=== PATIENT | male | born 1980 | race Caucasian/White ===

== ENCOUNTER 2019-04-19 16:53 | Emergency (ER) | payer SELFPAY ==
[~2019-04-19] VITALS: Ht 177.8 cm; Wt 118.2 kg
[2019-04-19 17:08] VITALS: Ht 177.8 cm; Wt 118.2 kg
[2019-04-19 18:02] LABS: APPEARANCE CLEAR (CLEAR); BILIRUBIN NEGATIVE (NEGATIVE); COLOR YELLOW (YELLOW); GLUCOSE NEGATIVE (NEGATIVE); KETONE NEGATIVE (NEGATIVE); NITRITE NEGATIVE (NEGATIVE); PROTEIN NEGATIVE (NEGATIVE); SPECIFIC GRAVITY 1.025 (1.005-1.020); UROBILINOGEN NORMAL (NORMAL)
[2019-04-19] MEDS ORDERED: MEDROL DOSE PACK4 MG PO (20:07)
[2019-04-19] MEDS ORDERED: HYDROCODON-ACE1 EAC7 PO (20:07)
[2019-04-19] MEDS ORDERED: CYCLOBENZAPRINE10 MG PO (20:07)
[2019-04-19 20:25] VITALS: BP 138/75
== END 2019-04-19 20:25 | disposition home or self-care (01) ==
LOC: D.ER 16:53
PROVIDERS: Family Medicine
DX: M51.16 Intervertebral disc disorders with radiculopathy, lumbar region (principal)

== ENCOUNTER 2019-05-26 11:47 | Emergency (ER) | payer OTHER ==
[~2019-05-26] VITALS: Ht 177.8 cm; Wt 109.1 kg
[~2019-05-26 11:47] MED LIST: CYCLOBENZAPRINE10 MG PO; HYDROCODON-ACE1 EAC7 PO; MEDROL DOSE PACK4 MG PO
[2019-05-26 12:03] VITALS: Ht 177.8 cm; Wt 109.1 kg
[2019-05-26] MEDS ORDERED: CYCLOBENZAPRINE10 MG PO (14:49)
[2019-05-26] MEDS ORDERED: DICLOFENAC SODI50 MG PO (14:49)
[2019-05-26 15:01] VITALS: BP 138/78
== END 2019-05-26 14:58 | disposition home or self-care (01) ==
LOC: D.ER 11:47
DX: M54.5 Low back pain (principal)